=== PATIENT | male | born 1960 | race Caucasian/White ===

== ENCOUNTER 2018-12-03 13:00 | Outpatient (RCR) | payer MEDICARE, SELFPAY ==
[2018-11-21 15:40] VITALS: BP 109/63; PULSE 80; RESP 20; TEMP 36.6; BMI 46.3
[2018-11-21 16:15] VITALS: BMI 46.3
--- NOTE | 2018-11-21 17:00 | HP.PCM_ITS ---
(1) Venous stasis ulcer of right lower leg with edema of right lower leg Status: Acute Current Visit: Yes Code(s): I83.019 - Varicose veins of right lower extremity with ulcer of unspecified site; I83.891 - Varicose veins of right lower extremity with other complications; L97.919 - Non-pressure chronic ulcer of unspecified part of right lower leg with unspecified severity; R60.9 - Edema, unspecified (2) Diabetes type 2, uncontrolled Status: Chronic Current Visit: Yes Qualifiers: Glycemic state: with hyperglycemia Qualified Code(s): E11.65 - Type 2 diabetes mellitus with hyperglycemia Code(s): E11.65 - Type 2 diabetes mellitus with hyperglycemia (3) Supplemental oxygen dependent Status: Chronic Current Visit: Yes Code(s): Z99.81 - Dependence on supplemental oxygen (4) COPD (chronic obstructive pulmonary disease) Status: Chronic Current Visit: Yes Qualifiers: COPD type: unspecified COPD Qualified Code(s): J44.9 - Chronic obstructive pulmonary disease, unspecified Code(s): J44.9 - Chronic obstructive pulmonary disease, unspecified (5) HTN (hypertension) Status: Chronic Current Visit: Yes Qualifiers: Hypertension type: unspecified Qualified Code(s): I10 - Essential (primary) hypertension Code(s): I10 - Essential (primary) hypertension (6) Hyperlipidemia Status: Chronic Current Visit: Yes Qualifiers: Hyperlipidemia type: unspecified Qualified Code(s): E78.5 - Hyperlipidemia, unspecified Code(s): E78.5 - Hyperlipidemia, unspecified (7) Gout Status: Chronic Current Visit: Yes Qualifiers: Gout site: unspecified site Gout etiology: unspecified cause Chronicity: unspecified Qualified Code(s): M10.9 - Gout, unspecified Code(s): M10.9 - Gout, unspecified (8) Obesity with body mass index greater than 30 Status: Chronic Current Visit: Yes Code(s): E66.9 - Obesity, unspecified (9) Neuropathy due to type 2 diabetes mellitus Status: Chronic Current Visit: Yes Code(s): E11.40 - Type 2 diabetes mellitus with diabetic neuropathy, unspecified (10) PAD (peripheral artery disease) Status: Chronic Current Visit: Yes Code(s): I73.9 - Peripheral vascular disease, unspecified (11) Venous hypertension Status: Chronic Current Visit: Yes Code(s): I87.309 - Chronic venous h ypertension (idiopathic) without complications of unspecified lower extremity (12) Depression Status: Chronic Current Visit: Yes Qualifiers: Depression Type: unspecified Qualified Code(s): F32.9 - Major depressive disorder, single episode, unspecified Code(s): F32.9 - Major depressive disorder, single episode, unspecified (13) Osteoarthritis Status: Chronic Current Visit: Yes Qualifiers: Osteoarthritis location: multiple joints Osteoarthritis type: unspecified Qualified Code(s): M15.9 - Polyosteoarthritis, unspecified Code(s): M19.90 - Unspecified osteoarthritis, unspecified site (14) GERD (gastroesophageal reflux disease) Status: Chronic Current Visit: Yes Qualifiers: Esophagitis presence: esophagitis presence not specified Qualified Code(s): K21.9 - Gastro-esophageal reflux disease without esophagitis Code(s): K21.9 - Gastro-esophageal reflux disease without esophagitis History of Present Illness Date of Service: 11/21/18 Chief Complaint: nonhealing ulcer of right espinosa History of Wound: Jony is a 58 yo male that presents for treatment and evaluation of a nonhealing ulcer to his right espinosa. He states that his current ulcer has been present for several weeks but he has had ulcers/wounds in this area in the past that come and go similar to this current one and they start with his leg becoming more swollen and then develops a blister which opens and drains and leaves an open ulceration of skin. The area is compromised due to an accident that happened at work in 2001 which required skin grafts, first graft failed and a second graft was done and allowed his ulcer to heal after 2 years of treatment. In 2013, he had a second injury to this area after he slipped getting into a train and tore the skin at the same site. This took approx. 2 years to heal as well but did not require skin grafting. He has COPD with chronic respiratory failure requiring continuous oxygen. He also has DM type 2 with peripheral neuropathy and has chronic lower extremity edema. He has been prescribed compression stockings in the past and is unable to don them himself due to arthritis and decreased mobility and his also has similar issues and is unable to assist him. He reports that the area is improved since he first saw Dr. Haines after using Bactroban ointment and taking an oral antibiotic. His swelling comes and goes though and lasix does not usually improve the swelling. He does try to elevate his legs when he is sitting and does not stand for long periods of time. He denies any fever or chills or pain or drainage at this time. Past Medical History Past Medical History: Chronic Problems Diabetes type 2, uncontrolled (Chronic) Supplemental oxygen dependent (Chronic) COPD (chronic obstructive pulmonary disease) (Chronic) HTN (hypertension) (Chronic) Hyperlipidemia (Chronic) Gout (Chronic) Obesity with body mass index greater than 30 (Chronic) Neuropathy due to type 2 diabetes mellitus (Chronic) PAD (peripheral artery disease) (Chronic) Venous hypertension (Chronic) Depression (Chronic) Osteoarthritis (Chronic) GERD (gastroesophageal reflux disease) (Chronic) Surgical History: adenoidectomy, appendectomy, arthroscopy, knee, tonsillectomy, - - skin graft RLE 2001, Left knee arthroscopy, Allergies/Adverse Reactions: Allergies ciprofloxacin [From Cipro] Allergy (Verified 11/21/18 16:04) Nausea/Vom/Diarrhea codeine Allergy (Verified 11/21/18 16:04) Nausea/Vom/Diarrhea Penicillins [PCN] Allergy (Verified 11/21/18 16:04) Hives Home Medications: Ambulatory Orders Medication Instructions Recorded Advair 250-50 Diskus 250 mcg INHALATION DAILY 11/21/18 Allopurinol [Zyloprim] 100 mg PO DAILYCM 11/21/18 Ascorbic Acid 1,000 iu PO DAILY 11/21/18 Atenolol [Tenormin (Beta Alexander)] 100 mg PO DAILY 11/21/18 Ramy Women's Aspirin Tablet 81 mg PO DAILY 11/21/18 Clonazepam 0.5 mg PO BID 11/21/18 Cymbalta 60 mg PO BID 11/21/18 Furosemide 40 mg PO QODAY 11/21/18 Glimepiride [Amaryl] 4 mg PO DAILY 11/21/18 Lisinopril [Zestril] 20 mg PO DAILY 11/21/18 Lyrica 200 mg PO TID 11/21/18 Multiple Vitamin 1,000 iu PO DAILY 11/21/18 Oxybutynin Chloride [Oxybutynin 15 mg PO DAILY 11/21/18 Chloride ER] Prevacid 15 mg PO DAILY 11/21/18 Simvastatin [Zocor] 20 mg PO QHS 11/21/18 Spiriva 18 mcg INHALATION DAILY 11/21/18 Tamsulosin HCl 0.4 mg PO DAILY 11/21/18 Ventolin Aerosols 96 mcg INHALATION TID 11/21/18 - Family History Maternal Cancer, COPD Paternal Diabetes, Heart Disease Sibling Heart Disease, Hypertension Lives: Spouse/ Significant Other Smoking Status: Former smoker Tobacco Use: Non-smoker Alcohol: Occasional Drugs: Marijuana Review of Systems Constitutional: Denies: Chills, Fever, Weight Change Eyes: Denies: Pain, Vision Change HEENT: Denies: Difficulty Hearing, Difficulty Swallowing, Sinus Congestion Cardiovascular: Reports: Edema. Denies: Chest Pain, Palpitations Respiratory: Reports: Shortness of Breath. Denies: Cough Gastrointestinal: Denies: Diarrhea, Nausea, Vomiting Genitourinary: Denies: Dysuria, Hematuria Musculoskeletal: Reports: Joint Pain Skin: Reports: Wounds Neurological: Reports: Numbness Hematologic/ Lymphatic: Denies: Easy Bruising, Easy Bleeding - Physical Exam Vital Signs Temp Pulse Resp BP 98 F 80 20 H 109/63 11/21/18 15:40 11/21/18 15:40 11/21/18 15:40 11/21/18 15:40 General: Alert, Oriented x3, Cooperative, No apparent distress HEENT: Atraumatic, Normocephalic Oral: Moist Mucosa Lungs: Clear to auscultation, - - wearing oxygen via nasal cannula Cardiovascular: Regular rate, Regular Rhythm Abdomen: Soft, Non Tender, Obese Extremities: Diminished Peripheral Pulses, Edema Skin: Ulcer/ Wound Wound Measurements and Assessment WC - Nurse 1 - General Ulcer Measurement Start: 11/21/18 15:31 Freq: Status: Active Protocol: Activity Type Activity Date Activity User E-Sign Co-Sign Detail Recorded Client Recorded Date Recorded By Document 11/21/18 15:40 AK [id number] 11/21/18 16:12 AK 11/21/18 15:40 Wound Center Nurse 1 [Ulcer Assessment] #1 Right Espinosa -Date of Last Picture (Recall this 11/21/18 field) -Photo Taken Yes -Exudate Amt None Present (0 %) -Wound Margin Thickened & Rolled Under -Granulation Amt Medium (34-66%) -Granulation Quality Red -Necrosis Amt Medium (34-66%) -Necrotic Tissue Type Adherent Slough -Texture (Stacey-wound Skin Appearance) Assessed Localized Edema -Moisture (Stacey-wound Skin Appearance Assessed ) Dry/Scaly -Color (Stacey-wound Skin Appearance) Assessed Hemosiderin Staining -Temperature (Stacey-wound Skin No Abnormality Appearance) (Pt Warm) -Tenderness on Palpation (Stacey-wound No Skin Appearance) -Ulcer Cleansing Wound Cleanser -Foul Odor after Cleansing No -Anesthetic Used 5% Lidocaine Gel [Edema Assessment] -Right Calf (cm) 45 -Right Ankle (cm) 28 - Nurse 2 - General Ulcer CM Notes Start: 11/21/18 15:31 Freq: Status: Active Protocol: Activity Type Activity Date Activity User E-Sign Co-Sign Detail Recorded Client Recorded Date Recorded By Document 11/21/18 16:15 [id number] 11/21/18 16:23 11/21/18 16:15 Wound Center Nurse 2 [Procedure/Treatment] #1 Right Espinosa -Time 16:16 -Correct Patient Yes -Correct Side, Site, Position Yes -Correct Procedure Yes -Procedure Performed Yes -Type of Procedure Debridement -Clinical Debridement Subcutaneous -Post Debridement Size (cm) - Length 0.3 -Post Debridement Size (cm) - Width 0.8 -Post Debridement Size (cm) - Depth 0.5 -Total Square Cm 0.24 -Wound/Ulcer Outcome Not Healed -Ulcer Cleansing Not Cleansed -Foul Odor after Cleansing No -Bioengineered Tissue No -Bleeding Controlled with NA -Offloading No -Treatment Response Procedure Tolerated Well [See Physician Procedure note for Specifics] Pain Scale: 0-10 Numeric [Pain] -Is Patient Pain Free? Yes Psych/Mental Status: Normal Affect, Appropriate Debridement Note Post-Debridement Measurements/Treatment - Nurse 2 - General Ulcer CM Notes Start: 11/21/18 15:31 Freq: Status: Active Protocol: Activity Type Activity Date Activity User E-Sign Co-Sign Detail Recorded Client Recorded Date Recorded By Document 11/21/18 16:15 [id number] 11/21/18 16:23 11/21/18 16:15 Wound Center Nurse 2 #1 Right Espinosa -Time 16:16 -Correct Patient Yes -Correct Side, Site, Position Yes -Correct Procedure Yes -Procedure Performed Yes -Type of Procedure Debridement -Clinical Debridement Subcutaneous -Post Debridement Size (cm) - Length 0.3 -Post Debridement Size (cm) - Width 0.8 -Post Debridement Size (cm) - Depth 0.5 -Total Square Cm 0.24 -Wound/Ulcer Outcome Not Healed -Ulcer Cleansing Not Cleansed -Foul Odor after Cleansing No -Bioengineered Tissue No -Bleeding Controlled with NA -Offloading No -Treatment Response Procedure Tolerated Well Pain Scale: 0-10 Numeric Is Patient Pain Free? Yes Wound debrided: right espinosa Laterality: Right Type of Debridement: Excisional debridement Anesthesia Used: 4% Lidocaine Solution, 5% Lidocaine Gel Depth: Down to and including healthy tissue, in the subcutaneous layer Percentage of wound debrided: 100 Instrument Used: 3mm curette Tissue Removed: yellow slough, devitalized tissue Severity: Fat Layer Exposed Amount of bleeding with debridement: Mild Bleeding Controlled with: Compression and gauze Patient tolerated procedure well Assessment/Plan Active Problems Venous stasis ulcer of right lower leg with edema of right lower leg (Acute) Diabetes type 2, uncontrolled (Chronic) Supplemental oxygen dependent (Chronic) COPD (chronic obstructive pulmonary disease) (Chronic) HTN (hypertension) (Chronic) Hyperlipidemia (Chronic) Gout (Chronic) Obesity with body mass index greater than 30 (Chronic) Neuropathy due to type 2 diabetes mellitus (Chronic) PAD (peripheral artery disease) (Chronic) Venous hypertension (Chronic) Depression (Chronic) Osteoarthritis (Chronic) GERD (gastroesophageal reflux disease) (Chronic) Assessment: venous stasis ulcer. Chronic lymphedema. DM type 2, uncontrolled - 10/23/18 HgbA1C 7.6% Plan: Jony's wound is evaluated today and debrided. REcords from his PCP reviewed with most recent labs in beginning of October. He appears to have chronic lymphedema of his right LE due to previous injury which waxes and wanes and subsequently develops blisters that burst and become wounds. Discussed compression with lymphedema pumps and he is interested in this as an option for treatment of his lymphedema. He is not able to don compression stockings himself and his is not able to do this for him either due to disabilities. Will obtain vascular studies to evaluate if he is appropriate for lymphedema pumps. Last studies were several years ago and his health has changed. Will dress his wound with Katy and cover with gauze. Will use single layer tubigrip for compression until vascular stidues are completed. Encouraged increased protein and better control of his DM. F/U in 1 week.
[2018-11-28 11:06] VITALS: BP 131/89; PULSE 72; RESP 18; TEMP 36.6; BMI 46.3
--- NOTE | 2018-11-28 16:12 | PCM.WC.PN ---
(1) Venous stasis ulcer of right lower leg with edema of right lower leg Status: Chronic Current Visit: Yes Code(s): I83.019 - Varicose veins of right lower extremity with ulcer of unspecified site; I83.891 - Varicose veins of right lower extremity with other complications; L97.919 - Non-pressure chronic ulcer of unspecified part of right lower leg with unspecified severity; R60.9 - Edema, unspecified (2) Diabetes type 2, uncontrolled Status: Chronic Current Visit: Yes Qualifiers: Glycemic state: with hyperglycemia Qualified Code(s): E11.65 - Type 2 diabetes mellitus with hyperglycemia Code(s): E11.65 - Type 2 diabetes mellitus with hyperglycemia (3) Supplemental oxygen dependent Status: Chronic Current Visit: Yes Code(s): Z99.81 - Dependence on supplemental oxygen (4) COPD (chronic obstructive pulmonary disease) Status: Chronic Current Visit: Yes Qualifiers: COPD type: unspecified COPD Qualified Code(s): J44.9 - Chronic obstructive pulmonary disease, unspecified Code(s): J44.9 - Chronic obstructive pulmonary disease, unspecified (5) HTN (hypertension) Status: Chronic Current Visit: No Qualifiers: Hypertension type: unspecified Qualified Code(s): I10 - Essential (primary) hypertension Code(s): I10 - Essential (primary) hypertension (6) Hyperlipidemia Status: Chronic Current Visit: No Qualifiers: Hyperlipidemia type: unspecified Qualified Code(s): E78.5 - Hyperlipidemia, unspecified Code(s): E78.5 - Hyperlipidemia, unspecified (7) Gout Status: Chronic Current Visit: No Qualifiers: Gout site: unspecified site Gout etiology: unspecified cause Chronicity: unspecified Qualified Code(s): M10.9 - Gout, unspecified Code(s): M10.9 - Gout, unspecified (8) Obesity with body mass index greater than 30 Status: Chronic Current Visit: Yes Code(s): E66.9 - Obesity, unspecified (9) Neuropathy due to type 2 diabetes mellitus Status: Chronic Current Visit: Yes Code(s): E11.40 - Type 2 diabetes mellitus with diabetic neuropathy, unspecified (10) PAD (peripheral artery disease) Status: Chronic Current Visit: Yes Code(s): I73.9 - Peripheral vascular disease, unspecified (11) Venous hypertension Status: Chronic Current Visit: Yes Code(s): I87.309 - Chronic venous hypertension (idiopathic) without complications of unspecified lower extremity (12) Depression Status: Chronic Current Visit: No Qualifiers: Depression Type: unspecified Qualified Code(s): F32.9 - Major depressive disorder, single episode, unspecified Code(s): F32.9 - Major depressive disorder, single episode, unspecified (13) Osteoarthritis Status: Chronic Current Visit: Yes Qualifiers: Osteoarthritis location: multiple joints Osteoarthritis type: unspecified Qualified Code(s): M15.9 - Polyosteoarthritis, unspecified Code(s): M19.90 - Unspecified osteoarthritis, unspecified site (14) GERD (gastroesophageal reflux disease) Status: Chronic Current Visit: No Qualifiers: Esophagitis presence: esophagitis presence not specified Qualified Code(s): K21.9 - Gastro-esophageal reflux disease without esophagitis Code(s): K21.9 - Gastro-esophageal reflux disease without esophagitis Type of Wound Date of Service: 11/28/18 Chief Complaint: nonhealing ulcer of right espinosa History of Wound: Jony is a 58 yo male that presents for treatment and evaluation of a nonhealing ulcer to his right espinosa. He states that his current ulcer has been present for several weeks but he has had ulcers/wounds in this area in the past that come and go similar to this current one and they start with his leg becoming more swollen and then develops a blister which opens and drains and leaves an open ulceration of skin. The area is compromised due to an accident that happened at work in 2001 which required skin grafts, first graft failed and a second graft was done and allowed his ulcer to heal after 2 years of treatment. In 2013, he had a second injury to this area after he slipped getting into a train and tore the skin at the same site. This took approx. 2 years to heal as well but did not require skin grafting. He has COPD with chronic respiratory failure requiring continuous oxygen. He also has DM type 2 with peripheral neuropathy and has chronic lower extremity edema. He has been prescribed compression stockings in the past and is unable to don them himself due to arthritis and decreased mobility and his also has similar issues and is unable to assist him. He reports that the area is improved since he first saw Dr. Haines after using Bactroban ointment and taking an oral antibiotic. His swelling comes and goes though and lasix does not usually improve the swelling. He does try to elevate his legs when he is sitting and does not stand for long periods of time. He denies any fever or chills or pain or drainage at this time. Progress of Wound: Jony is here for follow up of a nonhealing ulcer of his right espinosa. He tolerated Katy dressings and has had improvement in the size and depth of the ulcer. He is tolerating tubigrip compression but has difficulty with donning the stocking. He has vascular testing scheduled for next week. Denies efevr or chills, increased pain or drainage. - Physical Exam Vital Signs Temp Pulse Resp BP 97.9 F 72 18 131/89 H 11/28/18 11:06 11/28/18 11:06 11/28/18 11:06 11/28/18 11:06 General: Alert, Oriented x3, Cooperative, No apparent distress HEENT: Atraumatic, Normocephalic Abdomen: Obese Extremities: Edema Skin: Ulcer/ Wound Wound Measurements and Assessment WC - Nurse 1 - General Ulcer Measurement Start: 11/21/18 15:31 Freq: Status: Active Protocol: Activity Type Activity Date Activity User E-Sign Co-Sign Detail Recorded Client Recorded Date Recorded By Document 11/28/18 11:06 AN [id number] 11/28/18 11:14 AN 11/28/18 11:06 Wound Center Nurse 1 [Ulcer Assessment] #1 Right Espinosa -Combined with other wound No -Current Size (cm) - Length 0.1 -Current Size (cm) - Width 0.1 -Current Size (cm) - Depth 0.1 -Total Square Cm 0.01 -Epithelialization None Present -Undermining/Tunneling No -Circular Undermining No -Granulation Amt None Present (0 %) -Necrosis Amt Large (67-100%) -Necrotic Tissue Type Eschar -Ulcer Cleansing Rinsed/ Irrigated with Saline -Foul Odor after Cleansing No [Edema Assessment] -Right Calf (cm) 45 -Right Ankle (cm) 28 WC - Nurse 2 - General Ulcer CM Notes Start: 11/21/18 15:31 Freq: Status: Active Protocol: Activity Type Activity Date Activity User E-Sign Co-Sign Detail Recorded Client Recorded Date Recorded By Document 11/28/18 11:39 [id number] 11/28/18 11:42 11/28/18 11:39 Wound Center Nurse 2 [Procedure/Treatment] #1 Right Espinosa -Time 11:39 -Correct Patient Yes -Correct Side, Site, Position Yes -Correct Procedure Yes -Procedure Performed Yes -Type of Procedure Debridement -Clinical Debridement Subcutaneous -Post Debridement Size (cm) - Length 0.2 -Post Debridement Size (cm) - Width 0.3 -Post Debridement Size (cm) - Depth 0.2 -Total Square Cm 0.06 -Wound/Ulcer Outcome Not Healed -Ulcer Cleansing Rinsed/ Irrigated with Saline -Foul Odor after Cleansing No -Bioengineered Tissue No -Bleeding Controlled with NA -Offloading No -Treatment Response Procedure Tolerated Well [See Physician Procedure note for Specifics] Pain Scale: 0-10 Numeric [Pain] -Is Patient Pain Free? Yes Psych/Mental Status: Normal Affect, Appropriate Debridement Note Post-Debridement Measurements/Treatment WC - Nurse 2 - General Ulcer CM Notes Start: 11/21/18 15:31 Freq: Status: Active Protocol: Activity Type Activity Date Activity User E-Sign Co-Sign Detail Recorded Client Recorded Date Recorded By Document 11/21/18 16:15 [id number] 11/21/18 16:23 CS Document 11/28/18 11:39 [id number] 11/28/18 11:42 11/21/18 11/28/18 16:15 11:39 Wound Center Nurse 2 #1 Right Espinosa -Time 16:16 11:39 -Correct Patient Yes Yes -Correct Side, Site, Position Yes Yes -Correct Procedure Yes Yes -Procedure Performed Yes Yes -Type of Procedure Debridement Debridement -Clinical Debridement Subcutaneous Subcutaneous -Post Debridement Size (cm) - Length 0.3 0.2 -Post Debridement Size (cm) - Width 0.8 0.3 -Post Debridement Size (cm) - Depth 0.5 0.2 -Total Square Cm 0.24 0.06 -Wound/Ulcer Outcome Not Healed Not Healed -Ulcer Cleansing Not Cleansed Rinsed/ Irrigated with Saline -Foul Odor after Cleansing No No -Bioengineered Tissue No No -Bleeding Controlled with NA NA -Offloading No No -Treatment Response Procedure Procedure Tolerated Well Tolerated Well Pain Scale: 0-10 Numeric Is Patient Pain Free? Yes Yes Wound debrided: right espinosa Laterality: Right Type of Debridement: Excisional debridement Anesthesia Used: 4% Lidocaine Solution Depth: Down to and including healthy tissue, in the subcutaneous layer Percentage of wound debrided: 100 Instrument Used: 5mm curette Tissue Removed: yellow slough, devitalized tissue Severity: Fat Layer Exposed Amount of bleeding with debridement: Mild Bleeding Controlled with: Compression and gauze Patient tolerated procedure well Assessment/Plan Active Problems Venous stasis ulcer of right lower leg with edema of right lower leg (Chronic) Diabetes type 2, uncontrolled (Chronic) Supplemental oxygen dependent (Chronic) COPD (chronic obstructive pulmonary disease) (Chronic) Obesity with body mass index greater than 30 (Chronic) Neuropathy due to type 2 diabetes mellitus (Chronic) PAD (peripheral artery disease) (Chronic) Venous hypertension (Chronic) Osteoarthritis (Chronic) Assessment: venous stasis ulcer. Chronic lymphedema. DM type 2, uncontrolled - 10/23/18 HgbA1C 7.6% Plan: Nayanas ulcer is evaluated today and debrided. Discussed compression with lymphedema pumps and he is interested in this as an option for treatment of his lymphedema. He is not able to don compression stockings himself and his is not able to do this for him either due to disabilities. Will obtain vascular studies to evaluate if he is appropriate for lymphedema pumps. Last studies were several years ago and his health has changed. Will continue to dress his wound with Katy and cover with gauze. Will use single layer tubigrip for compression until vascular stidues are completed. Encouraged increased protein and better control of his DM. F/U in 1 week.
--- NOTE | 2018-12-03 13:05 | ART_ITS ---
Version 2 Reason For Study: PAD Procedure A bilateral lower extremity continuous wave Doppler with analog waveform analysis,segmental pressures,and ankle brachial indexes without exercise. Left Segmental Pressures Left brachial= 164mmHg. Left posterior tibial artery = 169mmHg. Left dorsalis pedis artery = 174mmHg. Left digit = 152 mmHg. The left dorsalis pedis waveforms are triphasic. The left posterior tibial artery waveforms are triphasic. Right Segmental Pressures Right brachial= 167mmHg. Right posterior tibial artery = 172mmHg. Right dorsalis pedis artery = 171mmHg. Right digit = 168 mmHg. The right dorsalis pedis waveforms are triphasic. The right posterior tibial artery waveforms are triphasic. Indices The right ankle brachial index by the dorsalis pedis is 1.02. The right ankle brachial index by the posterior tibial artery is 1.03. The left ankle brachial index by the dorsalis pedis is 1.04. The left ankle brachial index by the posterior tibial artery is 1.01. Interpretation Summary Triphasic waveforms are noted at ankle level bilaterally. Resting ankle-brachial indices are bilaterally normal. Digital-brachial indices are normal bilaterally. There is no evidence of significant arterial occlusive disease. Ordering Physician: Erika Brower Referring Physician: Eduard Haines Performed By: Mary Ellen Garcia RVT and Student
--- NOTE | 2018-12-03 13:05 | VDLE_ITS ---
Reason For Study: Edema RIGHT LEFT CFV is compressible, spontaneous, phasic, CFV is compressible, spontaneous, phasic, competent and demonstrates normal competent, and demonstrates normal augmentation. augmentation. FV is compressible, spontaneous, phasic, FV is compressible, spontaneous, phasic, competent and demonstrates normal competent and demonstrates normal augmentation. augmentation. POP V is compressible, spontaneous, phasic, POP V is compressible, spontaneous, phasic, competent and demonstrates normal competent and demonstrates normal augmentation. augmentation. T/P Trunk is compressible. T/P Trunk is compressible. PTV is compressible. PTV is compressible. RT PerV is compressible. LT PerV is compressible. SFJ is INCOMPETENT for greater than 0.5 SFJ is competent. seconds. GSV is competent. GSV is INCOMPETET throughout for greater than SSV is competent. 0.5 seconds and measures 0.39 x 0.45 cm. INCOMPETENT preforator from GSV 22 cm above medial malleolus. SSV is competent. Procedure Exam performed in department. A preliminary report was called and/or faxed to . Interpretation Summary Deep veins of the lower extremities are bilaterally patent and compressible segmentally. There is no evidence of deep vein thrombosis on either side. Valvular competence appears intact within the proximal deep venous systems bilaterally. The greater saphenous veins appear bilaterally patent and compressible segmentally. The right sapheno-femoral junction is incompetent . The left sapheno- femoral junction is competent . The right greater saphenous vein appears segmentally incompetent. The left greater saphenous vein appears segmentally competent. Small saphenous veins are patent and competent bilaterally. An incompetent shower maid vein is noted in the right calf, located 22 centimeters proximal to the right medial malleolus. Ordering Physician: Erika Brower Referring Physician: Eduard Haines Performed By: Radha RVT, Mary Ellen and Student
== END 2018-12-18 23:59 ==
LOC: WC 13:00
PROVIDERS: Family Provider Family Medicine; PCP Family Medicine; Referring Provider Family Medicine; Visit Provider Family Medicine
DX: E11.622 Type 2 diabetes mellitus with other skin ulcer (principal); I83.018 Varicose veins of right lower extremity with ulcer other part of lower leg; E11.65 Type 2 diabetes mellitus with hyperglycemia; J44.9 Chronic obstructive pulmonary disease, unspecified; Z99.81 Dependence on supplemental oxygen; L97.812 Non-pressure chronic ulcer of other part of right lower leg with fat layer exposed; R60.0 Localized edema; E78.5 Hyperlipidemia, unspecified; I10 Essential (primary) hypertension; E11.40 Type 2 diabetes mellitus with diabetic neuropathy, unspecified; E11.51 Type 2 diabetes mellitus with diabetic peripheral angiopathy without gangrene; K21.9 Gastro-esophageal reflux disease without esophagitis; J96.10 Chronic respiratory failure, unspecified whether with hypoxia or hypercapnia; Z79.899 Other long term (current) drug therapy; Z79.84 Long term (current) use of oral hypoglycemic drugs; Z87.891 Personal history of nicotine dependence; M10.9 Gout, unspecified
CPT/HCPCS: 11042; 93923; 93970; 99203; G0463

== ENCOUNTER 2018-12-26 15:31 | Outpatient (RCR) | payer SELFPAY ==
[2018-11-28 11:06] VITALS: BMI 46.3
[2018-12-19 00:48] VITALS: BP 131/89; PULSE 72; RESP 18; TEMP 36.6
[2018-12-26 14:31] VITALS: BP 147/81; PULSE 72; RESP 16; TEMP 35.4; BMI 46.3
--- NOTE | 2018-12-26 18:01 | PCM.WC.PN ---
(1) Venous stasis ulcer of right lower leg with edema of right lower leg Status: Chronic Current Visit: Yes Code(s): I83.019 - Varicose veins of right lower extremity with ulcer of unspecified site; I83.891 - Varicose veins of right lower extremity with other complications; L97.919 - Non-pressure chronic ulcer of unspecified part of right lower leg with unspecified severity; R60.9 - Edema, unspecified (2) Diabetes type 2, uncontrolled Status: Chronic Current Visit: Yes Qualifiers: Glycemic state: with hyperglycemia Code(s): E11.65 - Type 2 diabetes mellitus with hyperglycemia (3) Supplemental oxygen dependent Status: Chronic Current Visit: Yes Code(s): Z99.81 - Dependence on supplemental oxygen (4) COPD (chronic obstructive pulmonary disease) Status: Chronic Current Visit: Yes Qualifiers: COPD type: unspecified COPD Code(s): J44.9 - Chronic obstructive pulmonary disease, unspecified Type of Wound Date of Service: 12/26/18 Chief Complaint: nonhealing ulcer of right espinosa History of Wound: Jony is a 58 yo male that presents for treatment and evaluation of a nonhealing ulcer to his right espinosa. He states that his current ulcer has been present for several weeks but he has had ulcers/wounds in this area in the past that come and go similar to this current one and they start with his leg becoming more swollen and then develops a blister which opens and drains and leaves an open ulceration of skin. The area is compromised due to an accident that happened at work in 2001 which required skin grafts, first graft failed and a second graft was done and allowed his ulcer to heal after 2 years of treatment. In 2013, he had a second injury to this area after he slipped getting into a train and tore the skin at the same site. This took approx. 2 years to heal as well but did not require skin grafting. He has COPD with chronic respiratory failure requiring continuous oxygen. He also has DM type 2 with peripheral neuropathy and has chronic lower extremity edema. He has been prescribed compression stockings in the past and is unable to don them himself due to arthritis and decreased mobility and his also has similar issues and is unable to assist him. He reports that the area is improved since he first saw Dr. Haines after using Bactroban ointment and taking an oral antibiotic. His swelling comes and goes though and lasix does not usually improve the swelling. He does try to elevate his legs when he is sitting and does not stand for long periods of time. He denies any fever or chills or pain or drainage at this time. Progress of Wound: Jony is here for follow up of a nonhealing ulcer of his right espinosa. He tolerated Katy dressings and is healed. He has been doing physical therapy. He had vascular testing done which showed incompetence of GSV, SFJ veins. Denies fever or chills, increased pain or drainage. - Physical Exam Vital Signs Temp Pulse Resp BP 95.7 F L 72 16 147/81 H 12/26/18 14:31 12/26/18 14:31 12/26/18 14:31 12/26/18 14:31 General: Alert, Oriented x3, Cooperative, No apparent distress HEENT: Atraumatic, Normocephalic Oral: Moist Mucosa Abdomen: Obese Extremities: Edema Skin: Ulcer/ Wound Wound Measurements and Assessment WC - Nurse 1 - General Ulcer Measurement Start: 12/26/18 14:30 Freq: Status: Active Protocol: Activity Type Activity Date Activity User E-Sign Co-Sign Detail Recorded Client Recorded Date Recorded By Document 12/26/18 14:31 BM [id number] 12/26/18 14:37 [facility] 12/26/18 14:31 Wound Center Nurse 1 [Ulcer Assessment] #1 Right Espinosa -Combined with other wound No -Current Size (cm) - Length 0 -Current Size (cm) - Width 0 -Current Size (cm) - Depth 0 -Total Square Cm 0 -Date of Last Picture (Recall this 12/26/18 field) -Photo Taken Yes -Epithelialization Large 67-100% [Edema Assessment] -Lower Limb Edema Present Yes -Right Calf (cm) 43.9 -Right Ankle (cm) 27.5 WC - Nurse 2 - General Ulcer CM Notes Start: 12/26/18 14:30 Freq: Status: Active Protocol: Activity Type Activity Date Activity User E-Sign Co-Sign Detail Recorded Client Recorded Date Recorded By Document 12/26/18 15:33 DV [id number] 12/26/18 15:34 DV 12/26/18 15:33 Wound Center Nurse 2 [Procedure/Treatment] #1 Right Espinosa -Time 15:33 -Correct Patient Yes -Correct Side, Site, Position Yes -Procedure Performed No -Post Debridement Size (cm) - Length 0 -Post Debridement Size (cm) - Width 0 -Post Debridement Size (cm) - Depth 0 -Total Square Cm 0 -Wound/Ulcer Outcome Healed- Epithelialized [See Physician Procedure note for Specifics] Pain Scale: 0-10 Numeric [Pain] -Is Patient Pain Free? Yes Psych/Mental Status: Normal Affect, Appropriate Debridement Note Post-Debridement Measurements/Treatment WC - Nurse 2 - General Ulcer CM Notes Start: 12/26/18 14:30 Freq: Status: Active Protocol: Activity Type Activity Date Activity User E-Sign Co-Sign Detail Recorded Client Recorded Date Recorded By Document 12/26/18 15:33 DV [id number] 12/26/18 15:34 DV 12/26/18 15:33 Wound Center Nurse 2 #1 Right Espinosa -Time 15:33 -Correct Patient Yes -Correct Side, Site, Position Yes -Procedure Performed No -Post Debridement Size (cm) - Length 0 -Post Debridement Size (cm) - Width 0 -Post Debridement Size (cm) - Depth 0 -Total Square Cm 0 -Wound/Ulcer Outcome Healed- Epithelialized Pain Scale: 0-10 Numeric Is Patient Pain Free? Yes Wound debrided: right espinosa Laterality: Right No debridement was completed today - due to the wound healed Assessment/Plan Active Problems Venous stasis ulcer of right lower leg with edema of right lower leg (Chronic) Diabetes type 2, uncontrolled (Chronic) Supplemental oxygen dependent (Chronic) COPD (chronic obstructive pulmonary disease) (Chronic) Assessment: venous stasis ulcer. Chronic lymphedema. DM type 2, uncontrolled - 10/23/18 HgbA1C 7.6% Plan: Jony's ulcer is evaluated today and is healed. Jony's lower leg from time to time is likely to develop an open ulcer due to his venous insufficiency that is a side effect of his previous lower extremity injury from swelling in his lower extremity which can occur for a multitude of reasons such as his chronic pulmonary disease and diabetes. Encouraged increased protein and better control of his DM. Discharged today and advised to follow up as needed.
--- NOTE | 2018-12-26 18:09 | PN.PCM_ITS ---
(1) Venous stasis ulcer of right lower leg with edema of right lower leg Status: Chronic Current Visit: Yes Code(s): I83.019 - Varicose veins of right lower extremity with ulcer of unspecified site; I83.891 - Varicose veins of right lower extremity with other complications; L97.919 - Non-pressure chronic ulcer of unspecified part of right lower leg with unspecified severity; R60.9 - Edema, unspecified (2) Diabetes type 2, uncontrolled Status: Chronic Current Visit: Yes Qualifiers: Glycemic state: with hyperglycemia Code(s): E11.65 - Type 2 diabetes mellitus with hyperglycemia (3) Supplemental oxygen dependent Status: Chronic Current Visit: Yes Code(s): Z99.81 - Dependence on supplemental oxygen (4) COPD (chronic obstructive pulmonary disease) Status: Chronic Current Visit: Yes Qualifiers: COPD type: unspecified COPD Code(s): J44.9 - Chronic obstructive pulmonary disease, unspecified Type of Wound Date of Service: 12/26/18 Chief Complaint: nonhealing ulcer of right espinosa History of Wound: Jony is a 58 yo male that presents for treatment and evaluation of a nonhealing ulcer to his right espinosa. He states that his current ulcer has been present for several weeks but he has had ulcers/wounds in this area in the past that come and go similar to this current one and they start with his leg becoming more swollen and then develops a blister which opens and drains and leaves an open ulceration of skin. The area is compromised due to an accident that happened at work in 2001 which required skin grafts, first graft failed and a second graft was done and allowed his ulcer to heal after 2 years of treatment. In 2013, he had a second injury to this area after he slipped getting into a train and tore the skin at the same site. This took approx. 2 years to heal as well but did not require skin grafting. He has COPD with chronic respiratory failure requiring continuous oxygen. He also has DM type 2 with peripheral neuropathy and has chronic lower extremity edema. He has been prescribed compression stockings in the past and is unable to don them himself due to arthritis and decreased mobility and his also has similar issues and is unable to assist him. He reports that the area is improved since he first saw Dr. Haines after using Bactroban ointment and taking an oral antibiotic. His swelling comes and goes though and lasix does not usually improve the swelling. He does try to elevate his legs when he is sitting and does not stand for long periods of time. He denies any fever or chills or pain or drainage at this time. Progress of Wound: Jony is here for follow up of a nonhealing ulcer of his ri ght espinosa. He tolerated Katy dressings and is healed. He has been doing physical therapy. He had vascular testing done which showed incompetence of GSV, SFJ veins. Denies fever or chills, increased pain or drainage. - Physical Exam Vital Signs Temp Pulse Resp BP 95.7 F L 72 16 147/81 H 12/26/18 14:31 12/26/18 14:31 12/26/18 14:31 12/26/18 14:31 General: Alert, Oriented x3, Cooperative, No apparent distress HEENT: Atraumatic, Normocephalic Oral: Moist Mucosa Abdomen: Obese Extremities: Edema Skin: Ulcer/ Wound Wound Measurements and Assessment WC - Nurse 1 - General Ulcer Measurement Start: 12/26/18 14:30 Freq: Status: Active Protocol: Activity Type Activity Date Activity User E-Sign Co-Sign Detail Recorded Client Recorded Date Recorded By Document 12/26/18 14:31 BM [id number] 12/26/18 14:37 [facility] 12/26/18 14:31 Wound Center Nurse 1 [Ulcer Assessment] #1 Right Espinosa -Combined with other wound No -Current Size (cm) - Length 0 -Current Size (cm) - Width 0 -Current Size (cm) - Depth 0 -Total Square Cm 0 -Date of Last Picture (Recall this 12/26/18 field) -Photo Taken Yes -Epithelialization Large 67-100% [Edema Assessment] -Lower Limb Edema Present Yes -Right Calf (cm) 43.9 -Right Ankle (cm) 27.5 WC - Nurse 2 - General Ulcer CM Notes Start: 12/26/18 14:30 Freq: Status: Active Protocol: Activity Type Activity Date Activity User E-Sign Co-Sign Detail Recorded Client Recorded Date Recorded By Document 12/26/18 15:33 DV [id number] 12/26/18 15:34 DV 12/26/18 15:33 Wound Center Nurse 2 [Procedure/Treatment] #1 Right Espinosa -Time 15:33 -Correct Patient Yes -Correct Side, Site, Position Yes -Procedure Performed No -Post Debridement Size (cm) - Length 0 -Post Debridement Size (cm) - Width 0 -Post Debridement Size (cm) - Depth 0 -Total Square Cm 0 -Wound/Ulcer Outcome Healed- Epithelialized [See Physician Procedure note for Specifics] Pain Scale: 0-10 Numeric [Pain] -Is Patient Pain Free? Yes Psych/Mental Status: Normal Affect, Appropriate Debridement Note Post-Debridement Measurements/Treatment WC - Nurse 2 - General Ulcer CM Notes Start: 12/26/18 14:30 Freq: Status: Active Protocol: Activity Type Activity Date Activity User E-Sign Co-Sign Detail Recorded Client Recorded Date Recorded By Document 12/26/18 15:33 DV [id number] 12/26/18 15:34 DV 12/26/18 15:33 Wound Center Nurse 2 #1 Right Espinosa -Time 15:33 -Correct Patient Yes -Correct Side, Site, Position Yes -Procedure Performed No -Post Debridement Size (cm) - Length 0 -Post Debridement Size (cm) - Width 0 -Post Debridement Size (cm) - Depth 0 -Total Square Cm 0 -Wound/Ulcer Outcome Healed- Epithelialized Pain Scale: 0-10 Numeric Is Patient Pain Free? Yes Wound debrided: right espinosa Laterality: Right No debridement was completed today - due to the wound healed Assessment/Plan Active Problems Venous stasis ulcer of right lower leg with edema of right lower leg (Chronic) Diabetes type 2, uncontrolled (Chronic) Supplemental oxygen dependent (Chronic) COPD (chronic obstructive pulmonary disease) (Chronic) Assessment: venous stasis ulcer. Chronic lymphedema. DM type 2, uncontrolled - 10/23/18 HgbA1C 7.6% Plan: Jony's ulcer is evaluated today and is healed. Jony's lower leg from time to time is likely to develop an open ulcer due to his venous insufficiency that is a side effect of his previous lower extremity injury from swelling in his lower extremity which can occur for a multitude of reasons such as his chronic pulmonary disease and diabetes. Encouraged increased protein and better control of his DM. Discharged today and advised to follow up as needed.
== END 2019-01-15 23:59 ==
LOC: WC 15:31
PROVIDERS: Family Provider Family Medicine; PCP Family Medicine; Referring Provider Family Medicine; Visit Provider Family Medicine
DX: Z09 Encounter for follow-up examination after completed treatment for conditions other than malignant neoplasm (principal); E11.65 Type 2 diabetes mellitus with hyperglycemia; I89.0 Lymphedema, not elsewhere classified; E11.51 Type 2 diabetes mellitus with diabetic peripheral angiopathy without gangrene; J44.9 Chronic obstructive pulmonary disease, unspecified; Z99.81 Dependence on supplemental oxygen
CPT/HCPCS: 99213; G0463